=== PATIENT | female | born 1950 ===

== ENCOUNTER 2017-07-29 06:00 | Day surgery (SDC) | payer MEDICARE, MEDICAID ==
[2017-07-26 06:44] VITALS: BMI 27.1
[2017-07-29 06:51] LABS: BASO # 0.02 K/mm3 (0.0-2.0); BASO % 0.4 % (0.0-3.0); EOS # 0.1 (0.0-0.7); EOS % 2.2 % (1.5-5.0); GRAN # 3.12 (1.4-6.5); GRAN % 56.7 % (50.0-68.0); HEMATOCRIT 35.2 % (36.0-48.0); LYMPH # 1.9 (1.2-3.4); LYMPH % 34.2 % (22.0-35.0); MEAN CELL VOLUME 85.4 fl (80.0-105.0); MEAN CORPUSCULAR HEMOGLOBIN 27.7 pg (25.0-35.0); MEAN CORPUSCULAR HGB CONC 32.4 g/dl (31.0-37.0); MEAN PLATELET VOLUME 10.1 fl (7.0-11.0); MONO # 0.4 (0.1-0.6); MONO % 6.5 % (1.0-6.0); RED CELL DISTRIBUTION WIDTH 13.9 % (11.5-14.5); WHITE BLOOD COUNT 5.5 10^3/ul (4.5-11.0)
[2017-07-29 06:58] LABS: BLOOD UREA NITROGEN 18 mg/dL (7-21); CALCIUM 9.4 mg/dL (8.4-10.5); CARBON DIOXIDE 30 mmol/L (21-33); CHLORIDE 103 mmol/L (98-107); CHOLESTEROL 193 mg/dL (130-200); GFR AFRICAN-AMERICAN > 60; GLUCOSE,RANDOM 99 mg/dL (70-110); POTASSIUM 4.2 mmol/L (3.6-5.0); SODIUM 141 mmol/L (132-148)
[2017-07-29 07:07] LABS: INR 0.99 (0.93-1.08); PARTIAL THROMBOPLASTIN TIME 25.8 Seconds (23.7-30.8)
[2017-07-29] MEDS ORDERED: Iodixanol 320 MG/ML 100 ML BOTTLE IV ONE (09:32)
[2017-07-29] MEDS ORDERED: Lidocaine 2% Inj (20ml) ONE (09:32)
[2017-07-29] MEDS ORDERED: Nitroglycerin 50mg in D5W 50 MG/250 ML BOTTLE IV ONE (09:33)
[2017-07-29] MEDS ORDERED: Iodixanol 320 MG/ML 200 ML BOTTLE IV ONE (09:33)
[2017-07-29] MEDS ORDERED: Midazolam 2 MG/2 ML VIAL ONE ×2 (09:46→09:56)
[2017-07-29 10:54] VITALS: TEMP 97.4
[2017-07-29] MEDS ORDERED: Bacitracin 500 Units/gm Oint Foilpak UD TOP ONE (11:24)
[2017-07-29 12:41] VITALS: RESP 18
[2017-07-29 12:46] VITALS: O2SAT 98
[2017-07-29] MEDS ORDERED: Bacitracin 500 Units/gm Oint Foilpak UD ONE (14:19)
[2017-07-29 16:33] VITALS: BP 128/70; PULSE 54
--- NOTE | 2017-07-29 22:05 | CARDCATH ---
PROCEDURE DATE: 07/29/2017 INDICATIONS: Ms. Ximena Whaley is a 67-year-old female with past medical history significant for hypertension, dyslipidemia, and anxiety disorder, who was referred to me for evaluation of abnormal stress test and symptoms of dyspnea on exertion. She had undergone exercise treadmill stress test, which showed [address]-depression in inferior leads. Therefore, she was brought to the catheterization laboratory for further evaluation and treatment of coronary artery disease. PROCEDURE PERFORMED: Left heart catheterization with selective left and right coronary angiogram, left ventriculogram, 6-Nigerien right radial arterial access, and wristband for hemostasis. TECHNIQUES OF PROCEDURE: After obtaining informed consent, the patient was brought to the cardiac catheterization suite in post-absorptive non-sedated state. The patient was prepped and draped in the usual sterile fashion. A 2% lidocaine was used for infiltration of anesthesia. Using modified Seldinger technique, 6-Nigerien sheath was introduced into the right radial artery. Subsequently over a J-wire, a JR4 diagnostic catheter was used to engage the right coronary artery. Angiograms were obtained in three orthogonal views. Subsequently, the JR4 catheter was used to cross the aortic valve, and LV gram was obtained in the SAHU view. Subsequently, the catheter was pulled back across the aortic valve, and gradients were noted. Over a J-wire, The JR4 was exchanged to a JL4 diagnostic catheter. Angiograms of the left coronary systems were obtained in different orthogonal views. HEMODYNAMIC FINDINGS: Left ventricular end-diastolic pressure was 18 mmHg, left ventricular ejection fraction noted to be 55%-60%. CORONARY ANATOMY: Right coronary artery large size vessel with mild luminal irregularities, right PDA medium size vessel and mild irregularities. PLV small size branch. Left main large size vessel bifurcates into left anterior descending and left circumflex coronary artery. Left anterior descending has proximal [id number] 40% stenosis at the bifurcation of the septum and the diagonal branch, continues as medium size vessel and distally becomes small size vessel gives out two small diagonal branches, left circumflex runs in the atrioventricular groove and gives off a two small obtuse marginal branches, mid of the left circumflex has a mild 30% stenosis. IMPRESSION: Nonobstructive coronary artery disease, slow flow phenomena noted in the right coronary artery consistent with possible EKG change on stress test with microvascular ischemia and syndrome X. RECOMMENDATIONS: Continue aggressive medical management and risk factor modification, keep the patient on aspirin, statins, TOMY inhibitor, nitrates, and Ranexa. Thank you Dr. Valle for letting me to participate in the care of your patient. Obinna Rosario MD cc: MD Mayank Washington MD MTDD
--- NOTE | 2017-07-30 09:44 | CARD ---
APPROVED REPORT EKG Measurement Heart [id number] <Conclusion> Sinus bradycardia with premature atrial complexes Nonspecific ST abnormality Abnormal ECG
== END 2017-07-29 16:40 | disposition home or self-care (01) ==
LOC: CATH 06:00
PROVIDERS: ATTEND Internal Medicine Interventional Cardiology
DX: I25.10 Atherosclerotic heart disease of native coronary artery without angina pectoris (principal); I10 Essential (primary) hypertension; E78.5 Hyperlipidemia, unspecified; F41.9 Anxiety disorder, unspecified
CPT/HCPCS: 36415; 80048; 80061; 85025; 85610; 85730; 86850; 86900; 93005; 93458; 99152; C1769; C1894; J1644 ×2; J2250; J3010; Q9967